=== PATIENT | female | born 1960 | race Two or more races ===

== ENCOUNTER 2019-03-13 00:15 | Emergency (ER) | payer MEDICAID ==
[~2019-03-13] VITALS: Ht 149.9 cm; Wt 53.5 kg
--- NOTE | 2019-03-13 00:20 | NUR ---
"[facility]IB [facility] FROM [facility] C/O HYPERGLYCEMIA (>500). PT WAS GIVEN INSULIN ASPART 7UNIT AND LANTUS 44UNITS @2130 PER EMS REPORT" PT AAOX4, -SOB, NAD NOTED, VSS ,PENDING MD GRIFFITH
[2019-03-13 00:55] LABS: BASOPHILS # (AUTO) 0.1 /CMM (0.0-0.2); BASOPHILS % (AUTO) 2.3 % (0.0-2.0); EOSINOPHILS % (AUTO) 0.9 % (0.0-6.0); HEMATOCRIT 34 % (33-45); HEMOGLOBIN 10.8 g/dL (11.5-14.8); LYMPHOCYTES # (AUTO) 0.5 /CMM (0.8-4.8); LYMPHOCYTES % (AUTO) 12.4 % (20.0-44.0); MEAN CORPUSCULAR HGB CONC 32 g/dl (31.0-36.0); MEAN CORPUSCULAR VOLUME 82 fL (82-100); MONOCYTES # (AUTO) 0.4 /CMM (0.1-1.30); MONOCYTES % (AUTO) 10.6 % (2.0-12.0); NEUTROPHILS # (AUTO) 3.1 /CMM (1.8-8.9); NEUTROPHILS % (AUTO) 73.8 % (43.0-81.0); PLATELET COUNT (AUTO) 178 /CMM (150-450); RED BLOOD CELL COUNT(AUTO) 4.11 MIL/uL (4.0-5.2); WHITE BLOOD COUNT (AUTO) 4.2 K/uL (4.3-11.0)
[2019-03-13] MEDS: IV NS 0.9% 500 ML BAG IV ONE ×2 (00:55)
--- NOTE | 2019-03-13 01:30 | NUR ---
urine collected and sent to lab
[2019-03-13 01:51] LABS: APPEARANCE,URINE Clear (CLEAR); BILIRUBIN,URINE Negative (NEGATIVE); BLOOD, URINE Small Ery/uL (NEGATIVE); COLOR,URINE Yellow (YELLOW); KETONES,URINE Negative (NEGATIVE); LEUKOCYTE ESTERASE ,URINE Negative (NEGATIVE); NITRITE, URINE Negative (NEGATIVE); PROTEIN,URINE 100 mg/dl (NEGATIVE); UGLUCOSE >=1000 mg/dL (NEGATIVE); UROBILINOGEN,URINE 0.2 EU/dL (0.2)
[2019-03-13 01:52] LABS: CALCIUM, SERUM 8.5 mg/dL (8.5-10.1); POTASSIUM 4.7 mmol/L (3.5-5.1)
--- NOTE | 2019-03-13 02:00 | NUR ---
per md check bs once fluids are finished
[2019-03-13 02:25] LABS: BACTERIA,URINE Few /HPF (None Seen); SQUAMOUS EPITHELIAL CELL,UR Few /HPF (None Seen)
--- NOTE | 2019-03-13 03:00 | NUR ---
AMBULANCE ETA [phone]
--- NOTE | 2019-03-13 04:49 | NUR ---
BS 191 UPON DISCHARGE
[2019-03-13 04:50] VITALS: BP 131/73
== END 2019-03-13 04:50 | disposition home or self-care (01) ==
LOC: ER 00:19
DX: E11.65 Type 2 diabetes mellitus with hyperglycemia (principal); I10 Essential (primary) hypertension; J45.909 Unspecified asthma, uncomplicated; F20.9 Schizophrenia, unspecified; D64.9 Anemia, unspecified
CPT/HCPCS: 36415; 71045; 80048; 81001; 82010; 82962 ×2; 85025; 85730; 87086; 96360; 99284; J7040 ×2; 81000-TC

== ENCOUNTER 2019-04-25 00:03 | Emergency (ER) | payer MEDICAID, OTHER ==
[~2019-04-25] VITALS: Ht 162.6 cm; Wt 61.2 kg
--- NOTE | 2019-04-25 00:29 | NUR ---
PT REFUSED BLOOD DRAW AND IV LINE INSERTION. MADE AWARE.
--- NOTE | 2019-04-25 00:31 | NUR ---
[facility] FROM HEART TO [facility]. TO ER BED 10. AAOX3. NO RESP DISTRESS NOTED. AMBULATORY W/ FRONT WHEELED WALKER. BROUGHT IN FOR ELEVATED BS AT THE FACILTY. REPORTED AT 429 @ 9PM. PT ALSO REFUSED TO TAKE HER INSULIN. SHE ALSO REPORTS THAT SHE FEELS DIZZY. UPON ASSESSMENT, PT DENIES PAIN. ACCUCHECK AT 405, MADE AWARE. MD WAS AT BEDSIDE FOR EVAL. ORDERS RECEIVED NOTED AND CARRIED OUT. PT REFUSED BLOOD DRAWN AND IV INSERTION.
[2019-04-25 00:47] LABS: APPEARANCE,URINE Clear (CLEAR); BILIRUBIN,URINE Negative (NEGATIVE); BLOOD, URINE Moderate Ery/uL (NEGATIVE); COLOR,URINE Light yellow (YELLOW); KETONES,URINE Negative (NEGATIVE); LEUKOCYTE ESTERASE ,URINE Negative (NEGATIVE); NITRITE, URINE Negative (NEGATIVE); PH,URINE 5.5 (5.0-8.0); PROTEIN,URINE 30 mg/dl (NEGATIVE); UGLUCOSE 500 MG/DL mg/dL (NEGATIVE); UROBILINOGEN,URINE 0.2 EU/dL (0.2)
[2019-04-25] MEDS ORDERED: INSULIN REGULAR, HUMAN 100 UNIT/ML 10 ML VIAL ONE (00:47)
[2019-04-25] MEDS ORDERED: INSULIN REGULAR, HUMAN 100 UNIT/ML 10 ML VIAL SQ ONE (01:00)
[2019-04-25 01:03] LABS: BACTERIA,URINE Few /HPF (None Seen); SQUAMOUS EPITHELIAL CELL,UR Few /HPF (None Seen); WBC,URINE 0-2 /HPF (0-3)
[2019-04-25 01:28] LABS: BASOPHILS % (AUTO) 0.6 % (0.0-2.0); HEMATOCRIT 30 % (33-45); HEMOGLOBIN 9.3 g/dL (11.5-14.8); LYMPHOCYTES # (AUTO) 0.8 /CMM (0.8-4.8); MEAN CORPUSCULAR HGB CONC 31 g/dl (31.0-36.0); MEAN CORPUSCULAR VOLUME 79 fL (82-100); MONOCYTES # (AUTO) 0.3 /CMM (0.1-1.30); MONOCYTES % (AUTO) 7.6 % (2.0-12.0); NEUTROPHILS # (AUTO) 3.2 /CMM (1.8-8.9); NEUTROPHILS % (AUTO) 72.8 % (43.0-81.0); PLATELET COUNT (AUTO) 158 /CMM (150-450); RED BLOOD CELL COUNT(AUTO) 3.75 MIL/uL (4.0-5.2); WHITE BLOOD COUNT (AUTO) 4.5 K/uL (4.3-11.0)
[2019-04-25 01:43] LABS: ALANINE AMINOTRANSFERASE 63 U/L (12-78); ALBUMIN 2.4 g/dL (3.4-5.0); ALKALINE PHOSPHATASE 207 U/L (46-116); ASPARTATE AMINOTRANSFERASE 68 U/L (15-37); BILIRUBIN,DIRECT 0.1 mg/dL (0.0-0.2); BILIRUBIN,TOTAL 0.3 mg/dL (0.2-1.0); CALCIUM, SERUM 8.2 mg/dL (8.5-10.1); CARBON DIOXIDE 25 mmol/L (21-32); CHLORIDE 104 mmol/L (98-107); CREATININE 0.9 mg/dL (0.6-1.3); POTASSIUM 3.8 mmol/L (3.5-5.1); SODIUM SERUM 136 mmol/L (136-145); TOTAL PROTEIN, SERUM 6.5 g/dL (6.4-8.2); UREA NITROGEN, BLOOD 26 mg/dL (7-18)
[2019-04-25 01:44] LABS: GLUCOSE 439 mg/dL (74-106)
[2019-04-25] MEDS ORDERED: DIAZEPAM 5 MG TABLET ONE (02:56)
--- NOTE | 2019-04-25 02:58 | NUR ---
PT C/O STILL FEELIONG DIZZY. MADE AWARE. ORDER RECEIVED TO GIVE VALIUM 5MG PO X 1 DOSE. UPON GIVEN MEDS TO PT, PTY REFUSED TO TAKE MEDSICATION. MD AWARE
[2019-04-25] MEDS ORDERED: DIAZEPAM 10 MG TABLET PO ONE ×2 (03:00→04:00)
--- NOTE | 2019-04-25 03:00 | NUR ---
PT REFUSING TO HAVE HER VITAL SIGN TAKEN. NAD NOTED AT THIS TIME
--- NOTE | 2019-04-25 03:42 | NUR ---
[facility] CALLED FOR TRANSPORT, ETA [phone]. TRIP# [id number]
[2019-04-25] MEDS ORDERED: DIAZEPAM 10 MG TABLET ONE (03:58)
--- NOTE | 2019-04-25 04:00 | NUR ---
PT STIL C/O DIZZYNESS AND PT NOTED AGITATED. MD NOTIFIED. ORDERED VALIUM 10MG PO X 1 DOSE. PT AGREED TO TAKE MEDICATION THIS TIME.
--- NOTE | 2019-04-25 04:29 | NUR ---
PT IN BED SLEEPING. WASILY ARROUSABLE. PT REFUSES TO HAVE VS TAKEN
--- NOTE | 2019-04-25 05:59 | NUR ---
PT IN BED SLEEPING. NO DISTRESS NOTED. BREATHING EVEN AND UNLABORED
--- NOTE | 2019-04-25 06:17 | NUR ---
TRIED TO RECHECK BS BUT PT REFUSED DESPITE EXPLAINING THE IMPORTANCE OF CHECKING HER BS, PT STILL REFUSED
--- NOTE | 2019-04-25 06:46 | NUR ---
TRIED TO CHECK BS AND VS BUT PT STILL REFUSING. NAD NOTED.
--- NOTE | 2019-04-25 07:08 | NUR ---
REPORT GIVEN TO BRIDGETT ANDREW AT HEART TO HEART [facility].
--- NOTE | 2019-04-25 08:15 | NUR ---
REPORT GIVEN TO EMT FOR PT TRANSFER BACK TO FACILITY.
[2019-04-25] MEDS ORDERED: OLANZAPINE 10 MG VIAL IM ONE ×2 (08:37→09:00)
--- NOTE | 2019-04-25 08:50 | NUR ---
[facility] CALLED AGAIN FOR TRANSPORT, TRIP# [id number] ETA 20 PER JUANCARLOS
[2019-04-25 09:28] VITALS: BP 138/81
== END 2019-04-25 09:28 | disposition home or self-care (01) ==
LOC: ER 00:07
DX: E11.65 Type 2 diabetes mellitus with hyperglycemia (principal); R42 Dizziness and giddiness; I10 Essential (primary) hypertension; J45.909 Unspecified asthma, uncomplicated; F20.9 Schizophrenia, unspecified; Z88.3 Allergy status to other anti-infective agents; Z87.820 Personal history of traumatic brain injury
CPT/HCPCS: 36415; 80048; 80076; 81001; 82962 ×3; 84484; 85025; 85652; 85730; 93005; 96372 ×2; 99284; J1815; J3490; 81000-TC